=== PATIENT | female | born 1990 | race American Indian/Alaskan Native ===

== ENCOUNTER 2019-11-18 09:42 | Emergency (ER) | payer SELFPAY ==
[2019-11-18 09:50] VITALS: BP 122/74
[2019-11-18] MEDS ORDERED: predniSONE 20 MG TAB PO ONE (10:04)
[2019-11-18] MEDS ORDERED: HYDROcodone/ACETAMINOPHEN 5-325 MG TAB PO ONE (10:04)
--- NOTE | 2019-11-18 10:05 | Emergency Department Report ---
ED General Adult HPI - General Chief complaint: Extremity Injury, Lower Stated complaint: LUPUS / RIGHT HIP PAIN Time Seen by Provider: 11/18/19 09:57 Source: patient Mode of arrival: Ambulatory Limitations: No Limitations - History of Present Illness Initial comments: 29 YO COMES IN WITH A/C RIGHT HIP PAIN AND HX SLE. SHE IS NEW TO AREA AND IS OUT OF HER PREDNISONE. NO FEVER. NO CHILLS. NO TRAUMA. NO PAIN ON PALPATION OF THE HIP. GIVEN A/C ILLNESS WILL GIVE RX TO PT FOR HER WITHDRAWING FROM IT CAN CAUSE MORE HARM. Severity scale (0 -10): 10 - Related Data Previous Rx's Medication Instructions Recorded Last Taken Type Acetaminophen/Codeine [Tylenol 1 tab PO Q6H PRN #12 tab 11/18/19 Unknown Rx /Codeine # 3 tab] predniSONE [Deltasone] 5 mg PO QDAY #40 tab 11/18/19 Unknown Rx Allergies Allergy/AdvReac Type Severity Reaction Status Date / Time No Known Allergies Allergy Unverified 11/18/19 09:44 ED Review of Systems ROS: Stated complaint: LUPUS / RIGHT HIP PAIN Other details as noted in HPI Comment: All other systems reviewed and negative ED Past Medical Hx - Past Medical History Previous Medical History?: Yes Additional medical history: LUPUS/ ANEMIA - Surgical History Past Surgical History?: Yes Additional Surgical History: LEFT HIP REPLACEMENT - Family History Family history: no significant - Social History Smoking Status: Never Smoker Substance Use Type: None - Medications Home Medications: Home Medications Medication Instructions Recorded Confirmed Last Taken Type Acetaminophen/Codeine [Tylenol 1 tab PO Q6H PRN #12 tab 11/18/19 Unknown Rx /Codeine # 3 tab] predniSONE [Deltasone] 5 mg PO QDAY #40 tab 11/18/19 Unknown Rx ED Physical Exam - General Limitations: No Limitations General appearance: alert, in no apparent distress - Head Head exam: Present: atraumatic, normocephalic - Eye Eye exam: Present: normal appearance - ENT ENT exam: Present: mucous membranes moist - Neck Neck exam: Present: normal inspection - Respiratory Respiratory exam: Present: normal lung sounds bilaterally. Absent: respiratory distress - Cardiovascular Cardiovascular Exam: Present: regular rate, normal rhythm. Absent: systolic murmur, diastolic murmur, rubs, gallop - GI/Abdominal GI/Abdominal exam: Present: soft, normal bowel sounds - Extremities Exam Extremities exam: Present: normal inspection - Back Exam Back exam: Present: normal inspection - Neurological Exam Neurological exam: Present: alert, oriented X3 - Psychiatric Psychiatric exam: Present: normal affect, normal mood - Skin Skin exam: Present: warm, dry, intact, normal color. Absent: rash ED Course Vital Signs 11/18/19 11/18/19 09:48 10:19 Temperature 97.6 F Pulse Rate 100 H Respiratory 20 16 Rate Blood Pressure 122/74 [Left] O2 Sat by Pulse 100 Oximetry ED Medical Decision Making - Medical Decision Making MEDICATED FOR PAIN DC HOME WITH RX AND DC PLAN OF CARE. SHE VERBALIZES UNDERSTANDING OF NEED TO FOLLOW UP. Vital Signs 11/18/19 11/18/19 09:48 10:19 Temperature 97.6 F Pulse Rate 100 H Respiratory 20 16 Rate Blood Pressure 122/74 [Left] O2 Sat by Pulse 100 Oximetry - Differential Diagnosis A/C PAIN OF SLE Critical care attestation.: If time is entered above; I have spent that time in minutes in the direct care of this critically ill patient, excluding procedure time. ED Disposition Clinical Impression: History of lupus, Chronic pain Disposition: DC-01 TO HOME OR SELFCARE Is pt being admited?: No Does the pt Need Aspirin: No Condition: Stable Additional Instructions: follow up with pcp as we discussed referral below Prescriptions: predniSONE [Deltasone] 5 mg PO QDAY #40 tab Acetaminophen/Codeine [Tylenol /Codeine # 3 tab] 1 tab PO Q6H PRN #12 tab PRN Reason: Pain , Severe (7-10) Referrals: JOLENE HERBERT MD [Staff Physician] - 3-5 Days Forms: Work/School Release Form(ED) Time of Disposition: 10:04
== END 2019-11-18 12:07 | disposition home or self-care (01) ==
LOC: ED 09:42
DX: G89.29 Other chronic pain (principal); M32.9 Systemic lupus erythematosus, unspecified; D64.9 Anemia, unspecified; Z96.642 Presence of left artificial hip joint; Z79.899 Other long term (current) drug therapy
CPT/HCPCS: 99282; J7512